=== PATIENT | female | born 1985 | race Caucasian/White ===

== ENCOUNTER 2017-12-11 10:50 | Inpatient (IN) | payer MEDICAID ==
[2017-12-11 11:17] LABS: ADD MAN DIFF? NO
[2017-12-11] MEDS ORDERED: METHYLERGONOVINE 0.2 MG INJ IM ×2 (11:30→22:30)
[2017-12-11] MEDS ORDERED: CARBOPROST 250 MCG INJ IM ×2 (11:30→22:30)
[2017-12-11] MEDS ORDERED: OXYTOCIN 30 UNITS/LR 500 ML IV ×3 (11:30→22:30)
[2017-12-11] MEDS ORDERED: CEFAZOLIN 2 GM/50 ML (PMX) 50 ML IV (11:30)
[2017-12-11] MEDS ORDERED: MISOPROSTOL 200 MCG TAB PR ×2 (11:30→22:30)
[2017-12-11 11:38] LABS: BASOPHILS % 0.3 % (0.0-2.0); EOSINOPHILS % 0.5 % (0.0-7.0); HEMATOCRIT 41.4 % (37.0-47.0); LYMPHOCYTES # 1.5 10^3/ul (0.8-2.9); LYMPHOCYTES % 23.9 % (15.0-51.0); MEAN CORPUSCULAR HEMOGLOBIN 29.2 pg (29.0-33.0); MEAN CORPUSCULAR HGB CONC 33.8 g/dl (32.0-37.0); MEAN CORPUSCULAR VOLUME 86.3 fl (82.0-101.0); MEAN PLATELET VOLUME 11.3 fl (7.4-10.4); MONOCYTE # 0.4 10^3/ul (0.3-0.9); MONOCYTES % 6.9 % (0.0-11.0); NEUTROPHIL # 4.1 10^3/ul (1.6-7.5); NEUTROPHILS % 67.1 % (39.0-77.0); PLATELET COUNT 186 10^3/UL (140-415); RED CELL DISTRIBUTION WIDTH 13.1 % (11.5-14.5)
[2017-12-11 11:38] LABS: WHITE BLOOD COUNT 6.1 10^3/ul (4.8-10.8)
[2017-12-11 11:44] LABS: INR 0.87; PROTIME 11.9 Sec (11.9-14.9); PT RATIO 0.9
[2017-12-11 11:46] LABS: PARTIAL THROMBOPLASTIN TIME 26.4 Sec (25.0-35.0)
[2017-12-11 11:48] LABS: ALANINE AMINOTRANSFERASE 29 IU/L (13-69); ALBUMIN 3.8 g/dl (3.3-4.9); ALBUMIN/GLOBULIN RATIO 1.11; ALKALINE PHOSPHATASE 252 IU/L (42-121); ANION GAP 13 (8-16); ASPARTATE AMINO TRANSFERASE 29 IU/L (15-46); BILIRUBIN,INDIRECT 0.1 mg/dl (0-1.1); BILIRUBIN,TOTAL 0.1 mg/dl (0.2-1.3); BLOOD UREA NITROGEN 4 mg/dl (7-20); CALCIUM 9.3 mg/dl (8.4-10.2); CARBON DIOXIDE 23 mmol/L (21-31); CHLORIDE 105 mmol/L (97-110); CREATININE 0.47 mg/dl (0.44-1.00); GLUCOSE 86 mg/dl (70-220); POTASSIUM 3.3 mmol/L (3.5-5.1); SODIUM 138 mmol/L (135-144); TOTAL PROTEIN 7.2 g/dl (6.1-8.1); URIC ACID 3.7 mg/dl (3.1-7.9)
[2017-12-11] MEDS: LACTATED RINGER'S 1,000 ML IV ×3 (11:50→22:15)
[2017-12-11 11:57] LABS: ADD UMIC NO; UR ASCORBIC ACID NEGATIVE (NEGATIVE); UR BILIRUBIN (Dip) NEGATIVE (NEGATIVE); UR BLOOD (Dip) NEGATIVE (NEGATIVE); UR CLARITY CLEAR (CLEAR); UR COLOR STRAW (YELLOW); UR GLUCOSE (Dip) NEGATIVE (NEGATIVE); UR KETONES (Dip) NEGATIVE (NEGATIVE); UR LEUKOCYTE ESTERASE (Dip) NEGATIVE Leu/ul (NEGATIVE); UR NITRITE (Dip) NEGATIVE (NEGATIVE); UR SPECIFIC GRAVITY (Dip) 1.004 (1.003-1.030); UR TOTAL PROTEIN (Dip) NEGATIVE (NEGATIVE); UR UROBILINOGEN (Dip) NEGATIVE (NEGATIVE)
[2017-12-11 14:33] LABS: HEPATITIS B SURFACE ANTIGEN NEGATIVE (NEGATIVE)
[2017-12-11 15:25] LABS: RAPID PLASMA REAGIN NONREACTIVE (NR)
[2017-12-11] MEDS ORDERED: METOCLOPRAMIDE 10 MG INJ (17:47)
[2017-12-11] MEDS ORDERED: ONDANSETRON 4 MG INJ (17:47)
[2017-12-11] MEDS ORDERED: EPHEDrine SULFATE 50 MG/5 ML SYG (17:47)
[2017-12-11] MEDS ORDERED: morphine SULFATE/PF (10 MG/10 ML) INJ (17:47)
[2017-12-11] MEDS ORDERED: OXYTOCIN 10 UNIT INJ (17:48)
[2017-12-11] MEDS ORDERED: MIDAZOLAM 1 MG/ML 2 ML INJ (18:13)
[2017-12-11] MEDS ORDERED: DIPHENHYDRAMINE 50 MG INJ IV (19:00)
[2017-12-11] MEDS ORDERED: morphine 2 MG INJ IV (19:00)
[2017-12-11] MEDS ORDERED: morphine 4 MG/ML VIAL IV (19:00)
[2017-12-11] MEDS ORDERED: EPHEDrine SULFATE 50 MG/5 ML SYG IV (19:00)
[2017-12-11] MEDS ORDERED: NALOXONE (0.4 MG/ML) INJ IV (19:00)
[2017-12-11] MEDS: morphine SULFATE/PF (10 MG/10 ML) INJ SPINAL (19:50)
[2017-12-11] MEDS: OXYTOCIN 30 UNITS/LR 500 ML IV ×2 (19:52→22:57)
[2017-12-11] MEDS: KETOROLAC 30 MG INJ IV (20:07)
[2017-12-11] MEDS ORDERED: LANOLIN 7 GM TUBE TOP (22:30)
[2017-12-11] MEDS ORDERED: NACL 0.9% 3 ML SYG IV (22:30)
[2017-12-11] MEDS ORDERED: NA PHOSPHATE/BIPHOS 133 ML ENEMA PR (22:30)
[2017-12-11] MEDS: ONDANSETRON 4 MG INJ IV (22:54)
[2017-12-12] MEDS: LACTATED RINGER'S 500 ML IV ×4 (09:02→21:30)
[2017-12-12 09:26] LABS: ADD MAN DIFF? NO
[2017-12-12 09:33] LABS: BASOPHILS % 0.2 % (0.0-2.0); EOSINOPHILS % 0.1 % (0.0-7.0); HEMATOCRIT 32.4 % (37.0-47.0); LYMPHOCYTES # 0.9 10^3/ul (0.8-2.9); LYMPHOCYTES % 9.6 % (15.0-51.0); MEAN CORPUSCULAR HEMOGLOBIN 29.1 pg (29.0-33.0); MEAN CORPUSCULAR VOLUME 85.7 fl (82.0-101.0); MEAN PLATELET VOLUME 11.1 fl (7.4-10.4); MONOCYTE # 0.7 10^3/ul (0.3-0.9); MONOCYTES % 7.6 % (0.0-11.0); NEUTROPHIL # 7.6 10^3/ul (1.6-7.5); NEUTROPHILS % 82.1 % (39.0-77.0); PLATELET COUNT 157 10^3/UL (140-415); RED BLOOD COUNT 3.78 10^6/ul (4.20-5.40); RED CELL DISTRIBUTION WIDTH 13.2 % (11.5-14.5)
[2017-12-12 09:33] LABS: WHITE BLOOD COUNT 9.3 10^3/ul (4.8-10.8)
[2017-12-12] MEDS: KETOROLAC 30 MG INJ IV ×2 (11:18→17:13)
[2017-12-12] MEDS: IBUPROFEN 800 MG TAB PO (22:28)
[2017-12-13] MEDS: LACTATED RINGER'S 500 ML IV ×6 (01:30→20:41)
[2017-12-13] MEDS: IBUPROFEN 800 MG TAB PO ×3 (06:33→22:00)
[2017-12-13] MEDS: INFLUENZA VIRUS VACCINE 0.5 ML (DISPENSING) IM* (16:27)
[2017-12-14] MEDS: LACTATED RINGER'S 500 ML IV ×4 (01:30→13:01)
[2017-12-14] MEDS: HYDROCODONE/APAP (5/325) TAB PO (01:32)
[2017-12-14] MEDS: IBUPROFEN 800 MG TAB PO ×2 (06:06→12:59)
[2017-12-14] MEDS: MEASLES,MUMPS,RUBELLA VACCINE INJ SC* (09:00)
[2017-12-14] MEDS: DIPHTH/TET/ACEL PERTUSS (ADULT) 0.5 ML VIAL IM* (10:49)
== END 2017-12-14 14:36 | disposition home or self-care (01) | DRG 766 ==
LOC: OBT 10:50 → L-D 10:50 → OBT 11:21 → L-D 11:11 → PP1 22:34
PROC: 10D00Z1 Extraction of Products of Conception, Low, Open Approach (ICD-10-PCS; principal; 2017-12-11 18:15)
PROC: 3E033VJ Introduction of Other Hormone into Peripheral Vein, Percutaneous Approach (ICD-10-PCS; 2017-12-11 18:15)
DX: O34.211 Maternal care for low transverse scar from previous cesarean delivery (principal); Z37.0 Single live birth; Z3A.38 38 weeks gestation of pregnancy
CPT/HCPCS: 80053; 81003; 84560; 85025; 85384; 85610; 85730; 86592; 86850; 86900; 86901; 87340; 90686; 90715; 94760; 99464